=== PATIENT | male | born 1940 | race African-American/Black ===

== ENCOUNTER 2017-05-20 07:55 | Emergency (ER) | payer MEDICARE, OTHER ==
[~2017-05-20] VITALS: Ht 182.9 cm; Wt 93.4 kg
[~2017-05-20 07:55] MED LIST: AUGMENTIN 875-1 EAC1 ORAL; IBUPROFEN600 MG ORAL; NORCO 5-325 TA1 EAC1 ORAL; NORCO 5-325 TA1 EACH ORAL
[2017-05-20] MEDS ORDERED: METFORMIN HCL850 M1 ORAL (08:07)
[2017-05-20] MEDS ORDERED: BENAZEPRIL HCL10 MG ORAL (08:07)
[2017-05-20 08:10] VITALS: BP 158/75
[2017-05-20] MEDS ORDERED: TYLENOL EXTRA500 MG ORAL (08:57)
[2017-05-20 09:01] VITALS: BP 158/75
--- NOTE | 2017-05-20 10:37 | Emergency Room Report ---
History of Present Illness General Chief Complaint: Pain Source: Patient, Medical Record Present Illness HPI 77-year-old male presents ED complaining of right hand pain and swelling. States a mechanical trip and fall last night landing on his right hand. Denies hitting his head or LOC. Presents with pain swelling to right hand, throbbing, 8/10, nonradiating. Tetanus up-to-date. Denies any other injuries. No other aggravating relieving factors. Denies any other associated symptoms Allergies: Coded Allergies: No Known Allergies (Unverified , 05/15/14) Patient History Past Medical History: DM, HTN Past Surgical History: none Pertinent Family History: none Social History: Denies: smoking, alcohol use, drug use Immunizations: UTD Reviewed Nursing Documentation: PMH: Agreed, PSxH: Agreed Nursing Documentation-PMH Past Medical History: No History, Except For Hx Cardiac Problems: Yes - HIGH CHOLESTEROL Hx Hypertension: Yes Hx Pacemaker: No Hx Asthma: No Hx COPD: No Hx Diabetes: Yes - type II Hx Cancer: No Hx Gastrointestinal Problems: No Hx Dialysis: No Hx Neurological Problems: No Hx Cerebrovascular Accident: No Hx Seizures: No Review of Systems All Other Systems: negative except mentioned in HPI Physical Exam Vital Signs Date Time Temp Pulse Resp B/P (MAP) Pulse Ox O2 Delivery O2 Flow Rate FiO2 05/20/17 08:02 98.2 72 18 164/81 99 Room Air Sp02 EP Interpretation: reviewed, normal General Appearance: no apparent distress, alert, GCS 15, non-toxic Head: normocephalic Eyes: bilateral eye normal inspection, bilateral eye PERRL ENT: normal ENT inspection Neck: normal inspection Respiratory: normal inspection Cardiovascular #1: normal inspection Gastrointestinal: normal inspection Rectal: deferred Genitourinary: no CVA tenderness Musculoskeletal: tender - R hand Neurologic: alert, oriented x3, responsive, motor strength/tone normal, sensory intact, speech normal Psychiatric: normal inspection Skin: normal inspection Lymphatic: normal inspection Procedures Splinting Splinting : Consent: Verbal Pre-Made Type: velcro Splint: wrist Pre-Proc Neuro Vasc Exam: normal Post-Proc Neuro Vasc Exam: normal Patient Tolerated: Well Complications: None Medical Decision Making Diagnostic Impression: Primary Impression: Wrist pain Qualified Codes: M25.531 - Pain in right wrist ER Course Hospital Course 77-year-old M presents to ED complaining of R hand/wrist pain s/p trip and fall Differential diagnoses include: Fracture, dislocation, sprain, contusion Clinical course Patient placed on stretcher. After initial history and physical, I ordered Xrays of R hand/wrist Xrays prelim read shows no acute fracture/dislocation. placed in wrist splint Diagnosis - wrist pain Stable and discharged to home with prescription for Tylenol. apply ice, keep elevated. weight bear as tolerated. Followup with PMD. Return to ED if symptoms recur or worsen Other X-Ray Diagnostic Results Other X-Ray Diagnostic Results #1: X-Ray ordered: Right hand # of Views/Limited Vs Complete: 3 View Indication: Pain EP Interpretation: Yes Interpretation: no dislocation, no soft tissue swelling, no fractures Impression: No acute disease Electronically Signed by: Electronically signed by Shahram Justice MD Other X-Ray Diagnostic Results #2: X-Ray ordered: Right wrist # of Views/Limited Vs Complete: 3 View Indication: Pain EP Interpretation: Yes Interpretation: no dislocation, no soft tissue swelling, no fractures Impression: No acute disease Electronically Signed by: Electronically signed by Shahram Justice MD Last Vital Signs Date Time Temp Pulse Resp B/P (MAP) Pulse Ox O2 Delivery O2 Flow Rate FiO2 05/20/17 09:01 98.2 84 18 158/75 99 Room Air Status: improved Disposition: HOME, SELF-CARE Condition: Stable Scripts Acetaminophen* (TYLENOL EXTRA STRENGTH*) 500 Mg Tablet 500 MG ORAL Q8H Y for Prn Headache/Temp > 101, #30 TAB 0 Refills Prov: SHAHRAM JUSTICE M.D. 05/20/17 [facility]errals: [facility],REFERRING (PCP) Patient Instructions: Wrist Pain, [id number] SHAHRAM JUSTICE M.D. May 20, 2017 10:37
--- NOTE | 2017-05-20 12:07 | Diagnostic Imaging Report ---
Indication: Pain Findings: 3 views of the right wrist were obtained. No acute fractures, malalignment, erosions or periostitis are identified. Bones are osteopenic. Soft tissues are unremarkable. Impression: No acute findings.
--- NOTE | 2017-05-20 12:08 | Diagnostic Imaging Report ---
Indication: pain Findings: 3 views of the right hand were obtained. The bones are osteopenic. Moderate narrowing of several MCP and interphalangeal joints demonstrated. Osteophytes also noted. No acute fracture or malalignment identified. IMPRESSION: No acute injury identified
== END 2017-05-20 09:01 | disposition home or self-care (01) ==
LOC: EMR 08:45
DX: M25.531 Pain in right wrist (principal); E11.9 Type 2 diabetes mellitus without complications; I10 Essential (primary) hypertension; E78.00 Pure hypercholesterolemia, unspecified
CPT/HCPCS: 99283

== ENCOUNTER 2017-08-18 16:23 | Emergency (ER) | payer MEDICARE ==
[~2017-08-18] VITALS: Ht 180.3 cm; Wt 89.4 kg
[~2017-08-18 16:23] MED LIST changes: +BENAZEPRIL HCL10 MG ORAL; +METFORMIN HCL850 M1 ORAL; +TYLENOL EXTRA500 MG ORAL
--- NOTE | 2017-08-18 17:19 | Emergency Room Report ---
History of Present Illness General Chief Complaint: Generalized Weakness Source: Patient Present Illness HPI The patient presents with weakness, weight loss and loss of appetite with inability to move his bowels for 3 days. He was seen at a clinic and sent here because they were unable to do an x-ray. He was told that his sodium was low. He also states that his kidneys are functioning at 60%. He states has some pain in his abdomen that's 5/10 and constant periumbilical and not radiating. He denies passing any blood. Is on iron for anemia in his stools are dark. Denies any vomiting. He denies any chest pain. Denies shortness of breath. He does feel weak. He denies blood in his stool. He states his blood sugars are well-controlled with 1 dose of insulin at night: 22 units of Lantus. In addition he takes medicine for high blood pressure. History of gout and hyperlipidemia. He has lost 15 pounds since July 04. No night sweats, headache, rashes, joint pain. No productive cough. He smokes. Allergies: Coded Allergies: No Known Allergies (Unverified , 05/15/14) Patient History Past Medical History: see triage record Social History: Reports: smoking, Denies: alcohol use, drug use Social History Narrative has sisters inquiring Reviewed Nursing Documentation: PMH: Agreed, PSxH: Agreed Nursing Documentation-PM Past Medical History: No History, Except For Hx Cardiac Problems: Yes - HIGH CHOLESTEROL Hx Hypertension: Yes Hx Pacemaker: No Hx Asthma: No Hx COPD: No Hx Diabetes: Yes Hx Cancer: No Hx Gastrointestinal Problems: No Hx Dialysis: No Hx Cerebrovascular Accident: No Hx Seizures: No Review of Systems All Other Systems: negative except mentioned in HPI Physical Exam Vital Signs Date Time Temp Pulse Resp B/P (MAP) Pulse Ox O2 Delivery O2 Flow Rate FiO2 08/18/17 16:28 97.8 69 18 152/73 98 Room Air 97.9 Sp02 EP Interpretation: reviewed, normal General Appearance: well appearing, no apparent distress, GCS 15 Head: normocephalic Eyes: bilateral eye PERRL, bilateral eye conjunctivae pale ENT: dry mucus membranes Neck: supple Respiratory: lungs clear, normal breath sounds Cardiovascular #1: regular rate, rhythm Cardiovascular #2: 2+ radial (R) Gastrointestinal: normal inspection, normal bowel sounds, no mass, non- distended, no guarding, no rebound, tenderness - minimal and diffuse Musculoskeletal: back normal, gait/station normal, normal range of motion, no calf tenderness, other - effusion R elbow Neurologic: alert, oriented x3, grossly normal Psychiatric: depressed affect Skin: normal inspection, warm/dry Medical Decision Making Diagnostic Impression: Primary Impression: Abdominal pain Qualified Codes: R10.84 - Generalized abdominal pain Additional Impressions: Hyponatremia UTI (urinary tract infection) Qualified Codes: N30.00 - Acute cystitis without hematuria right upper lobe nodule Weight loss Renal insufficiency ER Course Patient presents with weight loss, inability to move his bowels and allegedly hyponatremia. Differential includes electrolyte abnormality, bowel obstruction , neoplastic process, inappropriate ADH secretion amongst others. The patient doesn't appear to be septic at this time. His abdomen is soft but he does have abdominal tenderness. We need to exclude cardiac cause as he has diabetes. Patient will be evaluated with EKG, chest x-ray, CT abdomen and pelvis with oral and IV contrast. The patient will be treated with IV hydration and given analgesia. EKG is unremarkable, chest x-ray shows a right upper lobe nodule Labs are remarkable for mild hyperglycemia and a sodium of 130. Pain is improved with treatment. Delay for CT scan. Concern is that creatinine is also 1.4 with diabetes - however, contrast needed. Patient was able to move his bowels after CT. CT is basically unremarkable for abdominal pathology. He felt slightly hungry after CT and ate. The patient was presented to Dr. Friend and the patient is transferred to [facility] improved condition. He was given Rocephin for a possible urinary tract infection. Findings discussed with sisters and family along with patient. Laboratory Tests Test 08/18/17 17:10 White Blood Count 7.5 K/UL (4.8-10.8) Red Blood Count 4.28 M/UL (4.70-6.10) L Hemoglobin 14.6 G/DL (14.2-18.0) Hematocrit 40.2 % (42.0-52.0) L Mean Corpuscular Volume 94 FL (80-99) Mean Corpuscular Hemoglobin 34.0 PG (27.0-31.0) H Mean Corpuscular Hemoglobin Concent 36.2 G/DL (32.0-36.0) H Red Cell Distribution Width 11.1 % (11.6-14.8) L Platelet Count 299 K/UL (150-450) Mean Platelet Volume 5.8 FL (6.5-10.1) L Neutrophils (%) (Auto) 69.1 % (45.0-75.0) Lymphocytes (%) (Auto) 21.6 % (20.0-45.0) Monocytes (%) (Auto) 8.2 % (1.0-10.0) Eosinophils (%) (Auto) 0.2 % (0.0-3.0) Basophils (%) (Auto) 0.9 % (0.0-2.0) Erythrocyte Sedimentation Rate 40 MM/HR (0-20) H Prothrombin Time 10.2 SEC (9.30-11.50) Prothrombin Time INR 1.0 (0.9-1.1) PTT 30 SEC (23-33) Urine Color [place] Urine Appearance Slightly cloudy Urine pH 6 (4.5-8.0) Urine Specific [place] 1.010 (1.005-1.035) Urine Protein Negative (NEGATIVE) Urine Glucose (UA) Negative (NEGATIVE) Urine Ketones Negative (NEGATIVE) Urine Occult Blood Negative (NEGATIVE) Urine Nitrite Negative (NEGATIVE) Urine Bilirubin Negative (NEGATIVE) Urine Ictotest Negative Urine Urobilinogen Normal MG/DL (0.0-1.0) Urine Leukocyte Esterase 3+ (NEGATIVE) H Urine RBC 0 /HPF (0 - 0) Urine WBC 15-20 /HPF (0 - 0) H Urine Squamous Epithelial Cells Occasional /LPF Urine Amorphous Sediment Many /LPF (NONE) H Urine Bacteria Few /HPF (NONE) Urine Hyaline Casts 0-2 /LPF (NONE) H Sodium Level 130 MMOL/L (136-145) L Potassium Level 4.1 MMOL/L (3.5-5.1) Chloride Level 92 MMOL/L (98-107) L Carbon Dioxide Level 30 MMOL/L (21-32) Anion Gap 8 mmol/L (5-15) Blood Urea Nitrogen 25 mg/dL (7-18) H Creatinine 1.4 MG/DL (0.55-1.30) H Estimate Glomerular Filtration Rate mL/min (>60) Glucose Level 191 MG/DL (74-106) H Calcium Level 9.5 MG/DL (8.5-10.1) Total Bilirubin 0.5 MG/DL (0.2-1.0) Aspartate Amino Transferase (AST) 21 U/L (15-37) Alanine Aminotransferase (ALT) 27 U/L (12-78) Alkaline Phosphatase 70 U/L (46-116) Total Creatine Kinase 81 U/L (26-308) Troponin I 0.000 ng/mL (0.000-0.056) Total Protein 7.9 G/DL (6.4-8.2) Albumin 4.0 G/DL (3.4-5.0) Globulin 3.9 g/dL Albumin/Globulin Ratio 1.0 (1.0-2.7) Lipase 107 U/L (73-393) Thyroid Stimulating Hormone (TSH) 0.570 uiU/mL (0.358-3.740) Urine Opiates Screen Negative (NEGATIVE) Urine Barbiturates Screen Negative (NEGATIVE) Phencyclidine (PCP) Screen Negative (NEGATIVE) Urine Amphetamines Screen Negative (NEGATIVE) Urine Benzodiazepines Screen Negative (NEGATIVE) Urine Cocaine Screen Negative (NEGATIVE) Urine Marijuana (THC) Screen Positive (NEGATIVE) H EKG Diagnostic Results Rate: normal Rhythm: NSR ST Segments: no acute changes Rhythm Strip Diag. Results EP Interpretation: yes Rhythm: NSR, no PVC's, no ectopy Chest X-Ray Diagnostic Results Chest X-Ray Diagnostic Results : Chest X-Ray Ordered: Yes # of Views/Limited/Complete: 1 View Indication: Other EP Interpretation: Yes Interpretation: no consolidation, no effusion, no pneumothorax, other - RUL nodule Impression: Other Electronically Signed by: Electronically signed by Miguel Mcneill MD CT/MRI/US Diagnostic Results CT/MRI/US Diagnostic Results : Imaging Test Ordered: abd pelvis Impression cardiac calcifications, normal abd - fat containing hernias Last Vital Signs Date Time Temp Pulse Resp B/P (MAP) Pulse Ox O2 Delivery O2 Flow Rate FiO2 08/18/17 22:40 98.0 70 10 160/93 100 Room Air 98.0 Status: improved Disposition: XFER SHT-TRM HOSP Condition: Serious - stable for transfer Miguel Mcneill M.D. Aug 18, 2017 17:19
[2017-08-18 17:32] LABS: BASOPHILS % (AUTO) 0.9 % (0.0-2.0); EOSINOPHILS % (AUTO) 0.2 % (0.0-3.0); HEMATOCRIT 40.2 % (42.0-52.0); HEMOGLOBIN 14.6 G/DL (14.2-18.0); LYMPHOCYTES % (AUTO) 21.6 % (20.0-45.0); MEAN CORPUSCULAR VOLUME 94 FL (80-99); MONOCYTES % (AUTO) 8.2 % (1.0-10.0); NEUTROPHILS % (AUTO) 69.1 % (45.0-75.0); PLATELET COUNT 299 K/UL (150-450); RED BLOOD COUNT 4.28 M/UL (4.70-6.10); RED CELL DISTRIBUTION WIDTH 11.1 % (11.6-14.8); WHITE BLOOD COUNT 7.5 K/UL (4.8-10.8)
[2017-08-18 17:34] LABS: BILIRUBIN, URINE NEGATIVE (NEGATIVE); COLOR,URINE AMBER; GLUCOSE, URINE (UA) NEGATIVE (NEGATIVE); KETONES,URINE NEGATIVE (NEGATIVE); LEUKOCYTE ESTERASE ,URINE 3+ (NEGATIVE); NITRITE,URINE NEGATIVE (NEGATIVE); PH,URINE 6 (4.5-8.0); PROTEIN,URINE NEGATIVE (NEGATIVE); UROBILINOGEN,URINE NORMAL MG/DL (0.0-1.0)
[2017-08-18 17:38] LABS: APPEARANCE,URINE SLIGHTLY CLOUDY
[2017-08-18 17:45] LABS: ANION GAP 8 mmol/L (5-15); BLOOD UREA NITROGEN 25 mg/dL (7-18); CALCIUM 9.5 MG/DL (8.5-10.1); CARBON DIOXIDE 30 MMOL/L (21-32); CHLORIDE 92 MMOL/L (98-107); CREATININE 1.4 MG/DL (0.55-1.30); POTASSIUM 4.1 MMOL/L (3.5-5.1); SODIUM 130 MMOL/L (136-145)
[2017-08-18 17:57] LABS: ALANINE AMINOTRANSFERASE 27 U/L (12-78); ALKALINE PHOSPHATASE 70 U/L (46-116); ASPARTATE AMINO TRANSFERASE 21 U/L (15-37); BILIRUBIN,TOTAL 0.5 MG/DL (0.2-1.0); CREATINE KINASE 81 U/L (26-308)
[2017-08-18] MEDS ORDERED: ALLOPURINOL300 M1 ORAL (18:02)
[2017-08-18] MEDS ORDERED: ALLOPURINOL100 M1 ORAL (18:02)
[2017-08-18] MEDS ORDERED: ASPIRIN81 MG ORAL (18:03)
[2017-08-18] MEDS ORDERED: ATENOLOL50 MG ORAL (18:05)
[2017-08-18] MEDS ORDERED: BENAZEPRIL HCL40 MG ORAL (18:08)
[2017-08-18] MEDS ORDERED: COLCRYS0.6 M1 PO (18:12)
[2017-08-18] MEDS ORDERED: CLOTRIMAZOLE15 GM TOPIC (18:12)
[2017-08-18] MEDS ORDERED: DOCUSATE SODIU100 MG ORAL (18:16)
[2017-08-18] MEDS ORDERED: FUROSEMIDE40 MG ORAL (18:16)
[2017-08-18] MEDS ORDERED: FERROUS SULFAT325 MG ORAL (18:16)
[2017-08-18] MEDS ORDERED: GLUCOTROL10 MG ORAL (18:20)
[2017-08-18] MEDS ORDERED: GABAPENTIN300 MG ORAL (18:20)
[2017-08-18] MEDS ORDERED: INSULIN CHARG5 UNITS SUBQ (18:26)
[2017-08-18] MEDS ORDERED: TRAMADOL HCL50 MG ORAL (18:33)
[2017-08-18] MEDS ORDERED: SIMVASTATIN10 MG ORAL (18:33)
[2017-08-18] MEDS ORDERED: ZANTAC150 MG ORAL (18:33)
[2017-08-18] MEDS ORDERED: METFORMIN HCL500 M1 ORAL (18:33)
[2017-08-18] MEDS ORDERED: ARTIFICIAL TEAR15 ML BOTH EYES (18:33)
[2017-08-18 18:40] VITALS: BP 157/70
[2017-08-18] MEDS ORDERED: NOVOLIN N100 UNIT/1 SUBQ (18:49)
[2017-08-18] MEDS ORDERED: cefTRIAXone 1 GM in NS 55 ML IVPB ONE (19:45)
[2017-08-18 22:00] VITALS: BP 122/51
[2017-08-18 22:38] VITALS: BP 160/93
[2017-08-18 22:40] VITALS: BP 160/93
--- NOTE | 2017-08-19 09:23 | Diagnostic Imaging Report ---
Indication: Abdominal pain Technique: One view of the chest Comparison: none Findings: Suboptimal inspiration. Lungs and pleural spaces are clear. The heart size is borderline enlarged. The aorta is tortuous. There is a calcified granuloma in the left upper lobe. Apparent right upper lobe nodular opacity probably just represents a prominent first costochondral junction but nodule cannot be excluded Impression: No definite acute process Possible right upper lobe nodular opacity versus prominent distal first rib. Consider further evaluation with chest CT as clinically indicated This agrees with the preliminary interpretation provided by the emergency room physician
--- NOTE | 2017-08-19 09:59 | Diagnostic Imaging Report ---
Clinical Indication: Abdominal pain Technique: Patient given oral contrast. IV administration nonionic contrast. Venous phase spiral acquisition obtained through the abdomen and pelvis. Multiplanar reconstructions were generated. Total dose length product 1021.91 mGycm. CTDIvol(s) 18.84 mGy. Dose reduction achieved using automated exposure control Comparison: none Findings: The appendix is normal. There is colonic diverticulosis. No evidence of acute diverticulitis. No small bowel distention. Contrast is seen to traverse the entirety of the GI tract. No free or loculated intraperitoneal air or fluid. No small bowel wall thickening. Distal esophagus, stomach, duodenum are unremarkable. There are small bilateral fat-containing inguinal hernias The liver, gallbladder, bile ducts, pancreas, spleen, adrenals are unremarkable. There is a left lower pole renal cyst. Subcentimeter low-attenuation lesions are seen in the upper pole of the right kidney which are too small to characterize. Both kidneys demonstrate lobulated margins. No renal or ureteral calculi, hydronephrosis, or hydroureter. The bladder is unremarkable. The prostate is mildly enlarged. It contains central calcifications. The left renal collecting system is duplicated A large lipoma is seen in the right obturator region. This measures 9 cm long axis dimension. The included lung bases demonstrate posterior dependent atelectatic changes as well as multiple small bullae. The bones demonstrate mild degenerative spondylosis changes. Impression: No acute process Diverticulosis. No evidence of diverticulitis Evidence of bullous COPD Left lower pole renal cyst. Subcentimeter low-attenuation renal lesions which are too small to characterize, most likely benign simple cysts Mild prostatomegaly 9 cm right obturator region lipoma Other findings as noted, including duplicated left renal collecting system, degenerative spondylosis, bilateral fat-containing femoral hernias This agrees with the preliminary interpretation provided overnight by [facility] teleradiology service. The CT scanner at [facility] is accredited by the [employer] and the scans are performed using protocols designed to limit radiation exposure to as low as reasonably achievable to attain images of sufficient resolution adequate for diagnostic evaluation.
--- NOTE | 2017-08-21 20:16 | Cardiology Report ---
APPROVED REPORT EKG Measurement Heart [id number] Normal sinus rhythm Nonspecific ST abnormality Abnormal ECG
== END 2017-08-18 22:40 | disposition short-term general hospital (02) ==
LOC: EMR 17:00
DX: N30.00 Acute cystitis without hematuria (principal); R10.84 Generalized abdominal pain; E87.1 Hypo-osmolality and hyponatremia; R91.1 Solitary pulmonary nodule; N28.9 Disorder of kidney and ureter, unspecified; R63.4 Abnormal weight loss; Z68.27 Body mass index [BMI] 27.0-27.9, adult; I10 Essential (primary) hypertension; E11.9 Type 2 diabetes mellitus without complications; Z79.4 Long term (current) use of insulin; E78.00 Pure hypercholesterolemia, unspecified
CPT/HCPCS: 36415; 71045; 74177; 80053; 80307; 81003; 82550; 82962; 83690; 84443; 84484; 85025; 85610; 85651; 85730; 86850; 86900; 86901; 87086; 87181; 93005; 96374; 96375; 99285; J0696; Q9967; S0028